=== PATIENT | female | born 1945 | race Caucasian/White ===

== ENCOUNTER → 2016-12-22 | Outpatient (CLI) | payer OTHER ==
[~2016-12-22] MED LIST: COMBIVENT INH14.7 GM; FLEXERIL10 M1 PO; IBUPROFEN800 MG PO; LORTAB 5/500 TA1 TA1 PO; SINGULAIR
--- NOTE | ~2016-12-22 | MY7 ---
[facility] A Service of [facility] & [facility] RADIOLOGY TEXT RESULTS PATIENT: JAC ODONNELL LOCATION: [facility] SAULT : 47 UNIT #: [id number] AGE: [address]: Elva Lopez APRN SEX: F ORDER DR: [id number] [facility] [address] [place], [place] [address] [id number] O MR#: [id number] Acc #: [id number] NAME: JAC ODONNELL : 1945 SEX: F STUDY DATE/TIME: 12/22/2016 9:01 UNIT: [facility] ROOM: STUDY DESCRIPTION: MY Mammogram Dx Dig Lt Attending Physician: Elva Lopez A.P.R.N. Referring Physician: Elva Lopez A.P.R.N. Ordering Physician: Elva Lopez A.P.R.N. Primary Care Physician: Elva Lopez A.P.R.N. MEDICAL IMAGING REPORT This report is preliminary unless electronic signature is present EXAM Left diagnostic mammogram 12/22. INDICATIONS Patient presents for further evaluation of asymmetric density in the left breast seen on recent screening mammogram. Patient has no current complaints. FINDINGS Spot compression left CC view was obtained in addition to a standard true lateral view. Study was reviewed with an FDA-approved CAD device. Comparison is made with 12/03/2016, 06/07/2015, 12/11/2011, 05/18/2009. The area of density effaces on the spot compression CC view today and is nearly identical to the 2011 exam and very similar to 2008 exam. No suspicious underlying mass. No microcalcifications are seen. The findings were discussed with the patient at the time of her examination today. IMPRESSION No abnormalities confirmed in the left breast. Findings on the screening mammogram appear to represent summation artifact. Patient should continue routine yearly screening. Patients over the age of 40 are entered into a reminder system with target due date for the next mammogram. A result letter will also be sent to the patient. BIRADS: 2 Benign finding. Dictated by... José Valdez Jr., M.D. [facility] A Service of [facility] & [facility] RADIOLOGY TEXT RESULTS PATIENT: JAC ODONNELL LOCATION: [facility] SAULT : 47 UNIT #: [id number] AGE: [address]: Elva Lopez APRN SEX: F ORDER DR: THIS IS AN ELECTRONICALLY VERIFIED REPORT José Valdez Jr., M.D. at 12/22/2016 12:30 PM ELENI/chen TD: 12/22/2016 11:38 JOB #: [id number] MEDICAL IMAGING REPORT COPY
== END | disposition home or self-care (01) ==
LOC: CMAM 08:27
DX: R92.8 Other abnormal and inconclusive findings on diagnostic imaging of breast (principal)
CPT/HCPCS: G0206